=== PATIENT | female | born 1985 | race Two or more races ===

== ENCOUNTER 2022-02-28 22:30 | Emergency (ER) | payer SELFPAY ==
[~2022-02-28] VITALS: Ht 162.6 cm; Wt 68.0 kg
[2022-02-28 22:30] VITALS: BP 123/74
--- NOTE | 2022-02-28 23:15 | NUR ---
COVID SWAB COLLECTED AND SENT TO LAB
--- NOTE | 2022-02-28 23:39 | NUR ---
Patient discharged to home in stable condition. Written and verbal after care instructions given. Patient verbalizes understanding of instruction.
== END 2022-02-28 23:54 | disposition home or self-care (01) ==
LOC: ER 22:33 → EDBD 22:33 → ER 23:54
DX: R46.1 Bizarre personal appearance (principal); Z59.00 Homelessness unspecified

== ENCOUNTER 2022-10-10 19:21 | Emergency (ER) | payer MEDICAID, OTHER ==
[~2022-10-10] VITALS: Ht 152.4 cm; Wt 59.0 kg
[2022-10-10] MEDS ORDERED: LORAZEPAM INJ 2 MG/ML VIAL IVP ONE (19:30)
--- NOTE | 2022-10-10 19:46 | NUR ---
[id number] FOR SEIZURE 1 HOUR AGO, NO TRAUMA . HX OF SEIZURE. PT AWAKE A/OX3; SOME CONFUSION NOTED. TOLERATING R/A WELL WITH NO RESP DISTRESS. CONNECTED PT TO POX AND MONITOR. SEIZURE SAFETY PROTOCOL IN PLACE,
[2022-10-10] MEDS ORDERED: LORAZEPAM INJ 2 MG/ML VIAL ONE (19:53)
--- NOTE | 2022-10-10 20:08 | NUR ---
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 PATENT AND INTACT BLOOD COLLECTED AND SENT TO LAB
[2022-10-10 20:20] LABS: BASOPHILS % (AUTO) 0.6 % (0.0-2.0); EOSINOPHILS % (AUTO) 1.8 % (0.0-6.0); HEMATOCRIT 31 % (33-45); HEMOGLOBIN 10.3 g/dL (11.5-14.8); LYMPHOCYTES % (AUTO) 46.9 % (20.0-44.0); MEAN CORPUSCULAR HGB CONC 33 g/dl (31.0-36.0); MEAN CORPUSCULAR VOLUME 86 fL (82-100); MONOCYTES # (AUTO) 0.5 K/uL (0.1-1.30); MONOCYTES % (AUTO) 7.3 % (2.0-12.0); NEUTROPHILS # (AUTO) 2.8 K/uL (1.8-8.9); NEUTROPHILS % (AUTO) 43.4 % (43.0-81.0); PLATELET COUNT (AUTO) 278 K/uL (150-450); RED BLOOD CELL COUNT(AUTO) 3.65 MIL/uL (4.0-5.2); WHITE BLOOD COUNT (AUTO) 6.4 K/uL (4.3-11.0)
[2022-10-10 20:45] LABS: CALCIUM, SERUM 8.6 mg/dL (8.5-10.1); CREATININE 0.6 mg/dL (0.6-1.3); POTASSIUM 3.4 mmol/L (3.5-5.1)
[2022-10-10 20:51] LABS: ALBUMIN 3.4 g/dL (3.4-5.0); BILIRUBIN,DIRECT 0.1 mg/dL (0.0-0.2); BILIRUBIN,TOTAL 0.1 mg/dL (0.2-1.0)
[2022-10-10] MEDS ORDERED: VALP250C3 PO (21:20)
--- NOTE | 2022-10-10 22:33 | NUR ---
F/U WITH RADIOLODY WITH CT EXAM
--- NOTE | 2022-10-10 22:45 | NUR ---
PT TAKEN TO CT VIA ERICA
--- NOTE | 2022-10-10 22:52 | NUR ---
PT RETURNED TO ER BED [address]
--- NOTE | 2022-10-11 00:13 | NUR ---
Patient discharged to home in stable condition. Written and verbal after care instructions given. Patient verbalizes understanding of instruction. IV removed. Catheter intact and site benign. Pressure and 4x4 applied to site. No bleeding noted.
[2022-10-11 00:14] VITALS: BP 121/75
== END 2022-10-11 00:16 | disposition home or self-care (01) ==
LOC: ER 19:22
DX: G40.909 Epilepsy, unspecified, not intractable, without status epilepticus (principal); Z59.00 Homelessness unspecified
CPT/HCPCS: 99284; 96374; 70450; 85025; 80048; 80076; 36415; 84702; J2060